=== PATIENT | male | born 1955 | race African-American/Black ===

== ENCOUNTER 2023-01-18 09:42 | Outpatient (CLI) | payer MEDICARE ==
[2023-01-18] MEDS ORDERED: Iopamidol 300 61% 100 ML VIAL FS ONE (09:53)
== END 2023-01-18 09:43 | disposition home or self-care (01) ==
LOC: CSHCT 09:42
PROVIDERS: ATTEND Nurse Practitioner Family
DX: R91.1 Solitary pulmonary nodule (principal); N28.89 Other specified disorders of kidney and ureter; K86.9 Disease of pancreas, unspecified; R91.8 Other nonspecific abnormal finding of lung field
CPT/HCPCS: 71260; 82565; Q9967